=== PATIENT | female | born 1980 | race Caucasian/White ===

== ENCOUNTER 2023-05-01 12:03 | Outpatient (REF) | payer OTHER, SELFPAY ==
[2023-05-01 13:44] LABS: Bilirubin Urine NEGATIVE (NEGATIVE); Blood Urine NEGATIVE (NEGATIVE); Clarity Urine CLEAR (CLEAR); Color Urine LT. YELLOW (YELLOW); Glucose Urine UA NEGATIVE (NEGATIVE); Ketones Urine NEGATIVE (NEGATIVE); Leukocyte Esterase Urine TRACE (NEGATIVE); Nitrite Urine NEGATIVE (NEGATIVE); Protein Urine NEGATIVE (NEG/TRACE); Specific Gravity Urine <=1.005 (1.005-1.025); Urobilinogen Urine 0.2 EU/dL (0.2-1.0); pH Urine 6.5 (5.0-9.0)
[2023-05-01 14:09] LABS: Bacteria Urine TRACE #/HPF (NONE SEEN); Crystals Seen? None Seen #/HPF (None Seen); Mucus Urine NONE SEEN (NONE SEEN); RBC Urine NONE SEEN #/HPF (0-2); Squamous Epithelial Cell Urine NONE SEEN #/LPF (NONE/RARE)
[2023-05-01 14:10] LABS: Cast Seen? NONE SEEN #/LPF (NONE SEEN)
[2023-05-02 16:09] LABS: Candida species Positive (Negative); Gardnerella vaginalis Positive (Negative); Trichomonas vaginalis Negative (Negative)
[2023-05-02 22:07] LABS: Neisseria gonorrhoeae, NAA Negative (Negative)
== END 2023-05-01 12:04 | disposition home or self-care (01) ==
LOC: LAB 12:03
PROVIDERS: PCP Nurse Practitioner; Visit Provider Nurse Practitioner
DX: R30.0 Dysuria (principal); N89.8 Other specified noninflammatory disorders of vagina
CPT/HCPCS: 81001; 87086; 87150; 87186; 87491; 87591

== ENCOUNTER 2024-09-19 07:59 | Outpatient (OUT) | payer OTHER, SELFPAY ==
--- NOTE | 2024-09-19 08:07 | US_ITS ---
The [address] [address] Patient Name: JACOB SÁNCHEZ MRN: [id number] date: 1980 Sex: F Assigned Patient Location: US Current Patient Location: US Accession/Order Number: [id number] Exam Date: 09/19/2024 08:09 Report Date: 09/19/2024 08:42 At the request of: LILLIAN PALACIOS Procedure: US right upper quadrant EXAM: US right upper quadrant HISTORY:. Right Upper Quadrant Abdominal Pain . COMPARISON: None. TECHNIQUE: Grayscale and color imaging was performed FINDINGS: The pancreas appears normal. The liver is normal in size. No masses are noted. Color-flow is noted in the portal and hepatic veins. The gallbladder appears normal with no stones or sludge identified. Common bile duct measures 5 mm. Right kidney measures 9.8 x 5 x 5.2 cm. Color-flow is noted. No solid renal cortical masses or hydronephrosis is noted. No fluid is noted in the right upper quadrant. US/US right upper quadrant IMPRESSION: Normal ultrasound of the right upper quadrant. Electronically authenticated by: TIFFANI SMITH Date: 09/19/2024 08:42
[2024-09-19 08:57] LABS: Basophils Absolute Auto 0.1 10^3/uL (0.0-0.1); Basophils Percent Auto 1.3 % (0.2-2.0); Eosinophils Absolute Auto 0.2 10^3/uL (0.0-0.7); Eosinophils Percent Auto 4.3 % (0.9-7.0); Hematocrit 43.7 % (36.0-48.0); Hemoglobin 15.2 g/dL (12.0-16.0); Lymphocytes Absolute Auto 1.3 10^3/uL (1.2-3.8); Lymphocytes Percent Auto 27.2 % (20.5-60.0); Mean Corpuscular HGB Conc 34.8 g/dL (29.9-35.2); Mean Corpuscular Hemoglobin 30.3 pg (26.7-34.0); Mean Corpuscular Volume 87.2 fL (81.0-99.0); Mean Platelet Volume 9.7 fL (9.5-13.5); Monocytes Absolute Auto 0.3 10^3/uL (0.3-0.8); Monocytes Percent Auto 7.4 % (1.7-12.0); Neutrophils Absolute Auto 2.8 10^3/uL (1.4-6.5); Neutrophils Percent Auto 59.8 % (43.0-75.0); Platelet Count 187 10^3/uL (150-450); Red Blood Count 5.01 10^6/uL (4.20-5.40); Red Cell Distribution Width 12.5 % (11.0-15.0); White Blood Count 4.6 10^3/uL (4.0-11.0)
[2024-09-19 09:36] LABS: Alanine Aminotransferase 15 U/L (14-59); Albumin Globulin Ratio 1.5; Albumin Level 4.1 g/dL (3.4-5.0); Alkaline Phosphatase 93 U/L (46-116); Anion Gap 10.5; Aspartate Amino Transferase 13 U/L (15-37); Bilirubin Direct 0.2 mg/dL (0.0-0.2); Bilirubin Total 0.7 mg/dL (0.2-1.0); Calcium 8.7 mg/dL (8.5-10.1); Carbon Dioxide 29.8 mmol/L (21.0-32.0); Chloride 104 mmol/L (98-107); Cholesterol 141 mg/dL (<=200); Estimated GFR (African America >60 (>=60 mL/min/1.73m^2); Estimated GFR (Non-African Ame >60 (>=60 mL/min/1.73m^2); Globulin 2.8 g/dL; Glucose 86 mg/dL (74-106); HDL Cholesterol 70 mg/dL (40-60); Potassium 4.3 mmol/L (3.5-5.1); Sodium 140 mmol/L (136-145); Thyroid Stimulating Hormone 4.107 uIU/mL (0.358-3.740); Total Protein 6.9 g/dL (6.4-8.2); Triglycerides 47 mg/dL (<=150); VLDL CHOLESTEROL 9.4 mg/dL
[2024-09-19 11:09] LABS: Free T4 1.16 ng/dL (0.76-1.46)
[2024-09-19 13:07] LABS: Estimated Average Glucose 105 mg/dL; Glycohemoglobin A1C 5.3 % (4.5-6.2)
== END 2024-09-19 08:00 | disposition home or self-care (01) ==
PROVIDERS: PCP Family Medicine; Visit Provider Family Medicine
DX: Z00.00 Encounter for general adult medical examination without abnormal findings (principal); R10.11 Right upper quadrant pain
CPT/HCPCS: 36415; 76705; 80048; 80053; 80061; 80076; 82668; 83036; 84439; 84443; 85025